=== PATIENT | female | born 1965 | race Caucasian/White ===

== ENCOUNTER 2018-05-25 12:13 | Emergency (ER) | payer OTHER ==
[2018-05-25 12:38] VITALS: BP 128/86; PULSE 80; TEMP 98.6; BMI 30.1
--- NOTE | 2018-05-25 12:59 | PDOC ---
History of Present Illness - General Chief Complaint: Pain Stated Complaint: LEFT LEG PAIN Time Seen by Provider: 05/25/18 12:23 History Source: Patient Exam Limitations: No Limitations - History of Present Illness Initial Comments: 05/25/18 12:59 52-year-old female with no significant past medical history presents with left knee pain on and off for a few weeks and acutely worsened yesterday. Patient was seen by her PCP and an urgent care for her previous knee pain, had an MRI showing some arthritic changes and medial meniscus strain, and in that setting has been favoring her left knee and is scheduled to see an orthopedic after the holidays. Last night her knee was actually feeling well, she stood up and began walking and felt a sudden sharp pain to the back of her knee with swelling and increased discomfort with ambulation since then. No fall or direct injury, no motor or sensory deficit, she does feel some stiffness when bending her knee. No fevers or chills, presents for evaluation. No DVT risk factors. Past History - Past Medical History Allergies/Adverse Reactions: Allergies Allergy/AdvReac Type Severity Reaction Status Date / Time No Known Allergies Allergy Verified 05/25/18 12:15 Home Medications: Ambulatory Orders Tramadol HCl [Ultram] 50 mg PO BID PRN #10 tablet MDD 2 tabs 05/25/18 COPD: No - Suicide/Smoking/Psychosocial Hx Smoking History: Never smoked Hx Alcohol Use: No Drug/Substance Use Hx: No Review of Systems - Review of Systems Constitutional: No: Chills, Fever Cardiac (ROS): No: Chest Pain, Palpitations Musculoskeletal: Yes: Joint Pain Neurological: No: Paresthesia, Weakness All Other Systems: Reviewed and Negative *Physical Exam - Vital Signs Last Vital Signs Temp Pulse Resp BP Pulse Ox 98.6 F 80 18 128/86 100 05/25/18 12:14 05/25/18 12:14 05/25/18 12:14 05/25/18 12:14 05/25/18 12:14 - Physical Exam Comments: 05/25/18 13:02 vital signs normal, afebrile GENERAL: The patient is awake, alert, and fully oriented, in no acute distress. HEAD: Normal with no signs of trauma. EYES: Pupils equal, round and reactive to light, extraocular movements intact, sclera anicteric, conjunctiva clear. EXTREMITIES: Normal except for left knee: Small to moderate effusion, no warmth or erythema. Full range of motion with 5 out of 5 flexion/extension, discomfort with anterior strain, otherwise stable. No focal bony tenderness or deformity, no calf tenderness or leg edema, 2+ distal pulses with intact sensation. NEUROLOGICAL: Normal speech, antalgic gait favoring left knee. PSYCH: Normal mood, normal affect. SKIN: Warm, Dry, normal turgor, no rashes or lesions noted. Moderate Sedation - Procedure Monitoring Vital Signs: Procedure Monitoring Vital Signs Temperature 98.6 F 05/25/18 12:14 Pulse Rate 80 05/25/18 12:14 Respiratory Rate 18 05/25/18 12:14 Blood Pressure 128/86 05/25/18 12:14 O2 Sat by Pulse Oximetry (%) 100 05/25/18 12:14 Medical Decision Making - Medical Decision Making 05/25/18 13:03 52-year-old female with acute on subacute left knee strain, musculoskeletal in origin without evidence of infection. Neurovascularly intact, atraumatic. No indication for further emergent imaging Bulky dressing applied with crutches for support Baseline NSAIDs, will add tramadol for pain control Has orthopedics follow-up, can obtain repeat MRI once swelling improves and if symptoms persist Understands return criteria *DC/Admit/Observation/Transfer Diagnosis at time of Disposition: Strain of left knee Qualifiers: Encounter type: initial encounter Qualified Code(s): S86.912A - Strain of unspecified muscle(s) and tendon(s) at lower leg level, left leg, initial encounter - Discharge Dispostion Disposition: HOME Condition at time of disposition: Stable - Prescriptions Prescriptions: Tramadol HCl [Ultram] 50 mg PO BID PRN #10 tablet MDD 2 tabs PRN Reason: Pain - Referrals Referrals: Selwyn Ku DO [Staff Physician] - - Patient Instructions Printed Discharge Instructions: DI for Knee Sprain Additional Instructions: Activity as tolerated. Bulky dressing and crutches as needed for support. Stay hydrated. Aleve 2 tabs twice daily for 3-5 days, preferably with food. Tramadol as prescribed as needed for severe pain, this medication can make you lightheaded so take proper precautions. Ice and elevate the affected areas for 20 minutes every 3-4 hours to reduce swelling. Continue your medications as previously prescribed by your physician. You should follow up with an orthopedic (consider calling Dr. Ku) as soon as possible regarding today's emergency department visit. If symptoms persist, a repeat MRI may be necessary to identify any new injury. Return to the emergency department for any new or concerning symptoms, particularly intolerable pain, severe swelling or difficulty moving the knee, fevers or chills, numbness or weakness. - Post Discharge Activity
== END 2018-05-25 13:20 | disposition home or self-care (01) ==
LOC: FER 12:13
DX: R26.2 Difficulty in walking, not elsewhere classified (principal); S86.912A Strain of unspecified muscle(s) and tendon(s) at lower leg level, left leg, initial encounter; X58.XXXA Exposure to other specified factors, initial encounter; Y93.89 Activity, other specified; Y92.89 Other specified places as the place of occurrence of the external cause
CPT/HCPCS: 99282-25

== ENCOUNTER 2021-06-04 18:46 | Emergency (ER) | payer OTHER ==
[2021-06-04 19:13] VITALS: BP 135/84; PULSE 101; TEMP 98.2; BMI 29.3
[2021-06-04] MEDS ORDERED: predniSONE 20 MG TABLET (UD) PO ONE (19:20)
[2021-06-04] MEDS ORDERED: predniSONE 20 MG TABLET (UD) ONE (19:25)
== END 2021-06-04 19:36 | disposition home or self-care (01) ==
LOC: FER 18:46
DX: Z91.030 Bee allergy status (principal)
CPT/HCPCS: 99283-25

== ENCOUNTER 2023-11-03 19:40 | Emergency (ER) | payer OTHER ==
[2023-11-03 19:51] VITALS: BP 134/84; PULSE 85; RESP 16; TEMP 97.8; BMI 29.2
[2023-11-03] MEDS ORDERED: ONDANSETRON 4 MG/2 ML VIAL ONE (19:56)
[2023-11-03] MEDS: SODIUM CHLORIDE 0.9% 1000 ML INFUS.BAG IV ONE (20:11)
[2023-11-03] MEDS: ONDANSETRON 4 MG/2 ML VIAL IVPUSH ONE (20:12)
[2023-11-03 20:16] LABS: HEMATOCRIT 40.3 % (32.4-45.2); HEMOGLOBIN 13.3 G/dL (10.7-15.3); MCH 29.1 pg (25.7-33.7); MCHC 32.9 g/dl (32.0-36.0); MEAN CELL VOLUME 88.5 fl (80-96); MEAN PLT VOLUME 7.9 fl (7.5-11.1); PLATELET COUNT 292.9 10^3/uL (134-434); RBC 4.55 10^6/uL (3.60-5.2); RDW 14.8 % (11.6-15.6); WHITE BLOOD COUNT 6.9 10^3/uL (4.0-10.8)
[2023-11-03 20:38] LABS: ALBUMIN 4.7 g/dl (3.4-5.0); BILIRUBIN,TOTAL 0.5 mg/dl (0.2-1); CALCIUM 10.2 mg/dl (8.5-10.1); CREATININE 0.9 mg/dl (0.6-1.3); TOT PROT 8.2 g/dl (6.4-8.2)
[2023-11-03 20:39] LABS: POTASSIUM 5.5 mmol/L (3.5-5.1)
== END 2023-11-03 21:55 | disposition home or self-care (01) ==
LOC: FER 19:40
PROC: 3E033GC Introduction of Other Therapeutic Substance into Peripheral Vein, Percutaneous Approach (ICD-10-PCS; principal; 2023-11-03)
DX: G44.209 Tension-type headache, unspecified, not intractable (principal); R11.0 Nausea
CPT/HCPCS: 36415; 70450-TC; 80053; 81003; 81015; 85027; 87086; 99284-25